=== PATIENT | female | born 1975 | race Caucasian/White ===

== ENCOUNTER 2017-03-30 09:45 | Outpatient (CLI) | payer BC, OTHER ==
[~2017-03-30] VITALS: Ht 165.1 cm; Wt 64.0 kg
[~2017-03-30 09:45] MED LIST: ACHD5005 PO; CALC-783 PO; CETI10TA17 PO; DICY20TA57 PO; FLUT16SP22 NSEACH; LEUC5TAB PO; LVT.1T PO; METHOTREXATE INJ IM; ONDA4TAB8 PO; PNT40TEC PO; PNV71TAB2 PO; PRD10T PO
[2017-03-30 09:54] VITALS: BP 112/80
[2017-03-30] MEDS ORDERED: DICY20TA10 PO (10:22)
[2017-03-30] MEDS ORDERED: MULT-884 PO (10:22)
[2017-03-30] MEDS ORDERED: LEVO100T7 PO (10:22)
[2017-03-30] MEDS ORDERED: FLUT16SP22 NSEACH (10:22)
[2017-03-30] MEDS ORDERED: ONDA4TAB10 PO (10:22)
[2017-03-30] MEDS ORDERED: CETI10TA17 PO (10:22)
[2017-03-30] MEDS ORDERED: CALC-840 PO (10:22)
[2017-03-30] MEDS ORDERED: HYDR-3812 PO (10:22)
[2017-03-30] MEDS ORDERED: PANT40TA3 PO (10:22)
[2017-03-30 10:29] LABS: BASOPHILS % (AUTO) 0 % (0-10); EOSINOPHILS % (AUTO) 1 % (0-10); LYMPHOCYTES % (AUTO) 36 % (12-44); MEAN CORPUSCULAR HEMOGLOBIN 30 PG (25-34); MEAN CORPUSCULAR HGB CONC 32 G/DL (32-36); MEAN CORPUSCULAR VOLUME 93 FL (80-99); MEAN PLATELET VOLUME 9.7 FL (7.4-10.4); MONOCYTES # (AUTO) 0.3 X 10^3 (0.0-1.0); MONOCYTES % (AUTO) 10 % (0-12); NEUTROPHILS # (AUTO) 1.5 X 10^3 (1.8-7.8); NEUTROPHILS % (AUTO) 53 % (42-75); PLATELET COUNT 210 10^3/uL (130-400); RED BLOOD COUNT 4.31 10^6/uL (4.35-5.85); RED CELL DISTRIBUTION WIDTH 13.8 % (10.0-14.5); WHITE BLOOD COUNT 2.9 10^3/uL (4.3-11.0)
[2017-03-30 10:49] LABS: ALANINE AMINOTRANSFERASE 116 U/L (0-55); ALBUMIN 4.2 GM/DL (3.2-4.5); ANION GAP 11 MMOL/L (5-14); ASPARTATE AMINO TRANSFERASE 59 U/L (5-34); BILIRUBIN,TOTAL 1.1 MG/DL (0.1-1.0); BLOOD UREA NITROGEN 15 MG/DL (7-18); BUN/CREATININE RATIO 22; CALCIUM 9.7 MG/DL (8.5-10.1); CARBON DIOXIDE 25 MMOL/L (21-32); CHLORIDE 104 MMOL/L (98-107); CREATININE SERUM 0.67 MG/DL (0.60-1.30); GFR ESTIMATED > 60; GLUCOSE 90 MG/DL (70-105); POTASSIUM 3.6 MMOL/L (3.6-5.0); SODIUM 140 MMOL/L (135-145); TOTAL PROTEIN 7.1 GM/DL (6.4-8.2)
== END 2017-03-30 10:15 | disposition home or self-care (01) ==
LOC: PREOP 09:45
PROVIDERS: ATTEND Obstetrics & Gynecology
DX: Z01.812 Encounter for preprocedural laboratory examination (principal); R10.2 Pelvic and perineal pain; N80.9 Endometriosis, unspecified
CPT/HCPCS: 36415; 80053; 85025; 86850; 86900; 86901; 87081

== ENCOUNTER 2017-04-06 08:20 | Day surgery (SDC) | payer BC, OTHER ==
[~2017-04-06] VITALS: Ht 165.1 cm; Wt 64.0 kg
[~2017-04-06 08:20] MED LIST changes: +CALC-840 PO; +DICY20TA10 PO; +HYDR-3812 PO; +LEVO100T7 PO; +MULT-884 PO; +ONDA4TAB10 PO; +PANT40TA3 PO
[2017-04-06] MEDS ORDERED: BUPIVACAINE 0.25% 30 ML (SENSORCAINE) VIAL ONE (08:43)
[2017-04-06] MEDS ORDERED: ceFAZolin 1 GM/NS 50 ML IVPB IV ONE ×2 (08:45)
[2017-04-06] MEDS ORDERED: CATHETER FLUSH 10 ML SYR IV PRN (08:45)
[2017-04-06] MEDS ORDERED: metroNIDAZOLE 500 MG/100 ML IVPB (PRE-MIX) IV ONE (08:45)
[2017-04-06] MEDS ORDERED: LIDOCAINE 1% INJ 20 ML (XYLOCAINE) VIAL ONE (08:53)
[2017-04-06] MEDS ORDERED: FAMOTIDINE 20MG/2ML IV (PEPCID) ONE (09:02)
--- NOTE | 2017-04-06 09:02 | Progress Note-Pre Operative ---
Pre-Operative Progress Note H&P Reviewed The H&P was reviewed, patient examined and no changes noted. Date Seen by Provider: Apr 06, 2017 Time Seen by Provider: 09:00 Date H&P Reviewed: Apr 06, 2017 Time H&P Reviewed: 09:00 Pre-Operative Diagnosis: CPP, Endometriosis ANGE TINOCO DO Apr 06, 2017 9:02 am
[2017-04-06] MEDS ORDERED: ONDANSETRON 4 MG/2 ML (SDV) Z0FRAN ONE (09:04)
[2017-04-06] MEDS ORDERED: fentaNYL INJECTION 100 MCG/2 ML AMP ONE ×2 (09:04→11:02)
[2017-04-06] MEDS ORDERED: ROCURONIUM 50 MG/5 ML (ZEMURON) VIAL IV ONE (09:04)
[2017-04-06] MEDS ORDERED: LACTATED RINGERS 1,000 ML IV ONE (09:04)
[2017-04-06] MEDS ORDERED: LIDOCAINE PF 2% 5 ML (XYLOCAINE) VIAL ONE (09:04)
[2017-04-06] MEDS ORDERED: proPOfol 200 MG/20 ML (DIPRIVAN) VIAL IV ONE (09:04)
[2017-04-06] MEDS ORDERED: DEXAMETHASONE 10 MG/ML (DECADRON) 1 ML VIAL ONE (09:04)
[2017-04-06] MEDS ORDERED: SEVOFLURANE (ULTANE) 15 ML INHAL SOLN ONE ×4 (09:04→11:30)
[2017-04-06] MEDS ORDERED: MIDAZOLAM 2 MG/2 ML (VERSED) VIAL ONE (09:05)
[2017-04-06] MEDS ORDERED: LACTATED RINGERS 1,000 ML IV PRN (09:18)
[2017-04-06] MEDS ORDERED: FAMOTIDINE 20MG/2ML IV (PEPCID) IV ONE (09:30)
[2017-04-06] MEDS ORDERED: LIDOCAINE 2% 20 ML (XYLOCAINE) VIAL INJ ONE (09:45)
[2017-04-06 09:47] VITALS: BP 114/79
[2017-04-06] MEDS ORDERED: LACTATED RINGERS 1,000 ML IV SCH (10:12)
[2017-04-06] MEDS ORDERED: ONDANSETRON 4 MG/2 ML (SDV) Z0FRAN IV PRN (10:15)
[2017-04-06] MEDS ORDERED: ZOLPIDEM 5 MG (AMBIEN) TAB PO PRN (10:15)
[2017-04-06] MEDS ORDERED: ANTACID SUSP 30 ML UDC (MYLANTA) PO PRN (10:15)
[2017-04-06] MEDS ORDERED: HYDROcodone/APAP 7.5 MG/325 MG (LORTAB, LORCET PLUS) TABLET PO PRN (10:15)
[2017-04-06] MEDS ORDERED: DOCUSATE SODIUM 100 MG (COLACE) CAP PO PRN (10:15)
[2017-04-06] MEDS ORDERED: KETOROLAC 30 MG/ML VIAL IV PRN (10:15)
[2017-04-06] MEDS ORDERED: SIMETHICONE 80 MG (MYLICON) CHEW PO PRN (10:15)
[2017-04-06] MEDS ORDERED: CHLORASEPTIC LOZENGE MM PRN (10:15)
--- NOTE | 2017-04-06 10:16 | Discharge Inst-Women's Service ---
Discharge Inst-Women's Serv Depart Medication/Instructions New, Converted or Re-Newed RX: RX on Chart Consults/Follow Up Additional Follow Up: Yes Orders/Referrals Dr. Diehl in 7-10 days and in 8 weeks Activity Activity: Activity as Tolerated Driving Instructions: No Driving for 1 Week NO SMOKING: NO SMOKING Nothing Inside Vagina: No Douching, No Novelty, No Tampons Diet Discharge Diet: No Restrictions Symptoms to Report to : Bleeding Excessive, Pain Increased, Fever Over 101 Degrees F, Vaginal Bleeding Increase, Questions/Concerns For Any Problems or Questions: Contact Your Physician Skin/Wound Care Infection Signs and Symptoms: Increased Redness, Foul Odor of Wound, Increased Drainage, Skin Itchy or Has a Rash, Increased Swelling, Temperature Above 101 F Operative Area Clean and Dry: Keep Incision Clean/Dry Stitches/Nando/Dermabond: Dermabond, Care of Stitches Bathing Instructions: ANGE Lee DO Apr 06, 2017 10:16
[2017-04-06] MEDS ORDERED: OXYC-471 PO (10:18)
[2017-04-06] MEDS ORDERED: DOCU100C37 PO (10:18)
[2017-04-06] MEDS ORDERED: IBUP-1773 PO (10:18)
[2017-04-06] MEDS ORDERED: SIME80TA16 PO (10:18)
[2017-04-06] MEDS ORDERED: morphine INJ 10 MG/ML 1ML (SYR OR VIAL) ONE (11:13)
[2017-04-06] MEDS ORDERED: ONDANSETRON 4 MG/2 ML (SDV) Z0FRAN IVP PRN (11:30)
[2017-04-06] MEDS ORDERED: morphine INJ 10 MG/ML 1ML (SYR OR VIAL) IVP PRN (11:30)
[2017-04-06] MEDS ORDERED: fentaNYL INJECTION 100 MCG/2 ML AMP IVP PRN (11:30)
[2017-04-06 12:38] VITALS: BP 110/74
[2017-04-06] MEDS: oxyCODONE/APAP 5/325MG (PERCOCET 5) TABLET PO PRN ×2 (15:40→19:46)
[2017-04-06 17:53] VITALS: BP 110/74
[2017-04-06 18:30] VITALS: BP 94/65
[2017-04-06 19:44] VITALS: BP 100/64
--- NOTE | 2017-04-06 19:55 | OPERATIVE REPORT ---
DATE OF SERVICE: 04/06/2017 PREOPERATIVE DIAGNOSIS: 1. A 41-year-old female with chronic pelvic pain. 2. History of endometriosis. POSTOPERATIVE DIAGNOSIS: 1. A 41-year-old female with chronic pelvic pain. 2. History of endometriosis. PROCEDURE PERFORMED: Robotic assisted total laparoscopic hysterectomy with bilateral salpingo-oophorectomy. SURGEON: Dr. Janes Diehl FLAME PLANER: YAMILEX Rey ANESTHESIA: General endotracheal anesthesia. ESTIMATED BLOOD LOSS: Minimal. URINE OUTPUT: 450 mL clear at the end of the procedure. FLUIDS: 1500 mL Lactated Ringers solution. FINDINGS: Atrophic appearing uterus and ovaries consistent with recent history of Lupron use, grossly normal vaginal mucosa, grossly normal external female genitalia, grossly normal appearing uterus and fallopian tubes. SPECIMEN SENT: Uterus, fallopian tubes and ovaries. INDICATIONS FOR PROCEDURE: This 41-year-old female patient who has been seeking my care in the past year for ongoing issues with chronic pelvic pain. She had ongoing diagnosis of endometriosis and has tried many conservative ways of managing this; however, now her pain is debilitating in nature and keeping her from working. She had tried a 3 month trial of Lupron and had noticed some improvement in the past; however, does not want to continue to deal with the symptoms from the Lupron and feels that maybe it is causing issues with her other medications. At this point, she wished to proceed with hysterectomy as it had been previously discussed with the patient. Risks of the procedure were once again reviewed with the patient in detail including risk of bleeding, infection, damage to any surrounding structures including but not limited to bowel, bladder, ureter kidneys, risk for need for blood transfusion, risk of anesthesia and even risk of and reoperation were all discussed with the patient. After all of her questions were answered, consent was obtained in the preoperative area and the patient was taken to the operating room. OPERATIVE REPORT IN DETAIL: Once in the operating room, general anesthesia was found to be adequate. She was placed in the dorsal lithotomy position and prepped and draped in a normal sterile fashion. A time-out was performed and a Nunez catheter was placed using sterile technique. A weighted speculum was inserted into the patient's vagina. A right angle retractor was used to visualize the cervix. It was grasped at the 12 o'clock position using a single tooth tenaculum and an 0 Vicryl suture was placed at the anterior lip of the cervix and the tenaculum was removed. I used the suture then as my retraction point. I then gently sounded the uterine cavity depth of which was found to be 8 cm. I gently dilated the cervix using Sneha dilators to allow placement of the Arely uterine manipulator. I then placed a Arely uterine manipulator with an 8 cm tip and a 3 cm colpotomy ring into the endometrial cavity deploying the balloon and advancing the colpotomy ring around the vaginal fornix. Once this was in place, I performed a change of gloves and took my attention to the abdomen where infraumbilically I infiltrated this area using 0.25% to make an 8 mm incision and directed Veress needle through this incision to retroperitoneal placement was confirmed using saline drop test. I then proceeded with insufflation using CO2 gas until we had a pressure of 5 mmHg was noted. I proceeded to maximum pressure of 15 mmHg at which point I removed the Veress needle and introduced an 8 mm blunt DaVinci camera trocar. Once this was in place, I am able to confirm a intraperitoneal placement using the DaVinci laparoscope. A brief scan of the upper abdominal anatomy appears to be grossly normal. I then had the patient placed in steep Trendelenburg and I am able to visualize all the anatomy necessary to perform the procedure. I then placed 2 lateral trocars, these were both 8 mm and approximately 8 cm lateral to my infraumbilical trocar. Once these are in place, after infiltrating the skin and making an incision and directing them under direct visualization of the laparoscope, I brought in the [employer] robot and docked it in appropriate fashion. Once the robot is docked, I placed the vessel sealer in the left hand and the monopolar anastasiia in the right hand and took my place at the operative console. I performed the following dissection bilaterally: I started at the infundibulopelvic ligament bipolar cauterized and transected using vessel sealer. I grasped the round ligament, bipolar cauterized and transected using the vessel sealer. I then am able to grasp the entire broad ligament, bipolar cauterized this and transected it using the vessel sealer. I do this down to the level of the lower uterine segment at which point I the anterior and posterior leaflets of the broad ligament. The anterior leaflet was taken around to the anterior vaginal fornix and the posterior leaflet was taken around to the posterior vaginal fornix. This allows me to isolate and skeletonize the uterine vessels laterally which are then bipolar cauterized and transected using the vessel sealer. I then performed a colpotomy at the 12 o'clock position and take this circumferentially around the Arely colpotomy ring using the monopolar anastasiia, amputating the cervix away from the vaginal fornix. The uterus, fallopian tubes and ovaries are then removed through the vagina. I then closed the lateral vaginal apices of the vaginal cuff using 2-0 Vicryl in a utqrxz-it-qcyyc fashion, colposuspending them to the uterosacral ligament. I then closed the remainder of the vaginal cuff using 2-0 V-Loc in running fashion after which there was no active bleeding noted from any of my dissection planes. I then undocked the [employer] robot and proceeded with the remainder of the case laparoscopically. I copiously irrigated the wound using normal saline. Once again, no active bleeding is noted from any of my dissection planes. I then placed FloSeal hemostatic agent over all my planes of dissection to ensure postoperative hemostasis. I then had the patient taken out of steep Trendelenburg and removed the lateral trocars under direct visualization of the laparoscope. The infraumbilical trocar was used to release insufflation as well as to introduce 10 mL of 0.25% Marcaine into the peritoneal cavity for postoperative pain management. I then removed this infraumbilical trocar and proceeded with closing the skin incisions using 4-0 Monocryl and an interrupted subcuticular stitch of Dermabond was applied to the incision and band-aids were placed over this. Nunez catheter was left in place. The patient tolerated the procedure well and was taken to the recovery area in stable condition. Lap and sponge counts were correct at the end of the procedure. Instrument counts were correct as well. 1 gm Ancef and 500 mg of Flagyl were given preoperatively for infection prophylaxis. Job ID: [id number] DocumentID: [id number] Dictated Date: 04/06/2017 11:46:40 Quality Assurance Monitor Body Date: 04/06/2017 19:54:53 Dictated By: DO JOSUÉ YANEZ
[2017-04-06] MEDS ORDERED: INFLUENZA TRIvalent 2017-2018 0.5 ML/45 MCG SYR IM ONE (20:45)
[2017-04-07] MEDS ORDERED: IBUPROFEN 600 MG (MOTRIN) TAB PO PRN (03:00)
== END 2017-04-06 19:58 | disposition home or self-care (01) ==
LOC: SDC 08:20 → LDRP 12:35 → SDC 19:58
PROVIDERS: ATTEND Obstetrics & Gynecology
DX: R10.2 Pelvic and perineal pain (principal); N80.0 Endometriosis of uterus; N83.11 Corpus luteum cyst of right ovary; N83.12 Corpus luteum cyst of left ovary; N83.291 Other ovarian cyst, right side; N83.292 Other ovarian cyst, left side; N83.311 Acquired atrophy of right ovary; N83.312 Acquired atrophy of left ovary; N30.10 Interstitial cystitis (chronic) without hematuria; M06.9 Rheumatoid arthritis, unspecified; K21.9 Gastro-esophageal reflux disease without esophagitis; K44.9 Diaphragmatic hernia without obstruction or gangrene; Z79.899 Other long term (current) drug therapy
CPT/HCPCS: 84703; 94664

== ENCOUNTER → 2017-05-31 | Outpatient (CLI) | payer BC ==
[~2017-05-31] MED LIST changes: +DOCU100C37 PO; +IBUP-1773 PO; +OXYC-471 PO; +SIME80TA16 PO
== END ==
LOC: RAD 09:40
PROVIDERS: ATTEND Obstetrics & Gynecology
DX: Z12.31 Encounter for screening mammogram for malignant neoplasm of breast (principal)

== ENCOUNTER → 2018-07-12 | Outpatient (CLI) | payer BC ==
[~2018-07-12] MED LIST changes: -HYDR-3812 PO
[2018-07-12 12:31] LABS: ALANINE AMINOTRANSFERASE 34 U/L (0-55); ALBUMIN 4.5 GM/DL (3.2-4.5); ALKALINE PHOSPHATASE 104 U/L (40-136); BILIRUBIN,TOTAL 0.9 MG/DL (0.1-1.0); BUN/CREATININE RATIO 22; CALCIUM 9.4 MG/DL (8.5-10.1); CARBON DIOXIDE 26 MMOL/L (21-32); CHLORIDE 104 MMOL/L (98-107); CREATININE SERUM 0.63 MG/DL (0.60-1.30); GFR ESTIMATED > 60; GLUCOSE 86 MG/DL (70-105); MAGNESIUM 2.7 MG/DL (1.8-2.4); PHOSPHORUS 4.5 MG/DL (2.3-4.7); POTASSIUM 3.8 MMOL/L (3.6-5.0); SODIUM 140 MMOL/L (135-145); TOTAL PROTEIN 7.1 GM/DL (6.4-8.2)
== END ==
LOC: LAB 11:57
PROVIDERS: ATTEND Internal Medicine Endocrinology, Diabetes & Metabolism
DX: E20.9 Hypoparathyroidism, unspecified (principal); D64.9 Anemia, unspecified; R53.83 Other fatigue
CPT/HCPCS: 36415; 80053; 83735; 84100

== ENCOUNTER → 2018-08-13 | Outpatient (CLI) | payer BC | LOC: RAD 15:23 | PROVIDERS: ATTEND Obstetrics & Gynecology | DX: Z12.31 Encounter for screening mammogram for malignant neoplasm of breast (principal) | CPT/HCPCS: 77067 ==

== ENCOUNTER → 2018-08-13 | Outpatient (CLI) | payer BC | LOC: LAB 15:25 | PROVIDERS: ATTEND Internal Medicine Endocrinology, Diabetes & Metabolism | DX: E20.9 Hypoparathyroidism, unspecified (principal); E03.9 Hypothyroidism, unspecified | CPT/HCPCS: 36415; 82310; 84443 ==

== ENCOUNTER 2018-10-04 05:54 | Outpatient (CLI) | payer BC ==
[~2018-10-04] VITALS: Ht 165.1 cm; Wt 64.0 kg
[2018-10-04] MEDS ORDERED: CALC0.253 PO (15:22)
[2018-10-04] MEDS ORDERED: RT-ALBUINH IH (15:22)
[2018-10-04] MEDS ORDERED: FOLI1TAB24 PO (15:22)
== END 2018-10-04 15:30 | disposition home or self-care (01) ==
LOC: PREOP 05:54
PROVIDERS: ATTEND Surgery
DX: Z01.818 Encounter for other preprocedural examination (principal)

== ENCOUNTER 2018-10-15 07:59 | Day surgery (SDC) | payer BC ==
[~2018-10-15] VITALS: Ht 165.1 cm; Wt 64.0 kg
[~2018-10-15 07:59] MED LIST changes: +CALC0.253 PO; +FOLI1TAB24 PO; +RT-ALBUINH IH
[2018-10-15] MEDS ORDERED: LACTATED RINGERS 1,000 ML IV STA (08:16)
[2018-10-15] MEDS ORDERED: LACTATED RINGERS 1,000 ML IV ONE (08:16)
[2018-10-15] MEDS ORDERED: HURRICAINE EXT TUBE (BENZOCAINE) XX PRN (08:30)
[2018-10-15 08:34] VITALS: BP 98/72
[2018-10-15] MEDS ORDERED: proPOfol 200 MG/20 ML (DIPRIVAN) VIAL IV ONE (08:47)
[2018-10-15] MEDS ORDERED: MIDAZOLAM 2 MG/2 ML (VERSED) VIAL ONE (08:48)
[2018-10-15] MEDS ORDERED: HURRICAINE EXT TUBE (BENZOCAINE) ONE (08:57)
--- NOTE | 2018-10-15 08:58 | Progress Note-Pre Operative ---
Pre-Operative Progress Note H&P Reviewed The H&P was reviewed, patient examined and no changes noted. Time Seen by Provider: 08:55 Date H&P Reviewed: Oct 15, 2018 Time H&P Reviewed: 08:56 Pre-Operative Diagnosis: Gastritis, Dysphagia FELICIA MUSA DO Oct 15, 2018 08:58
[2018-10-15 09:35] VITALS: BP 115/58
--- NOTE | 2018-10-15 09:53 | Progress Note-Post Operative ---
Post-Operative Progess Note Surgeon (s)/Pie Filler (s) Surgeon FELICIA MUSA DO Pie Filler: none Pre-Operative Diagnosis Gastritis, Dysphagia Post-Operative Diagnosis Gastritis Gastric Polyp Procedure & Operative Findings Date of Procedure 10/15/18 Procedure Performed/Findings EGD with bx EGD with Polypectomy, by hot snare Anesthesia Type IV sedation by SMOKE CONTROL SUPERVISOR Estimated Blood Loss Estimated blood loss (mL): scant Specimens/Packing Specimens Removed antral bx Gastric polyps FELICIA MUSA DO Oct 15, 2018 09:53
--- NOTE | 2018-10-15 09:55 | Endoscopy Discharge Instruct ---
Endo Procedure/Findings Findings 1.: Gastritis 2.: Polyp Discharge Instructions - Activity: You might feel a little sleepy until tomorrow. This is due to the medicine you received to relax you. Until tomorrow, you should: NOT drive a car, operate machinery or power tools. NOT drink any alcoholic beverages. NOT make any important decisions or sign importortant papers. Do not return to work until tomorrow, unless otherwise instructed. Resume previous activities tomorrow. Diet: Start by taking liquids. If you tolerate liquids, advance to solid food. make an appointment for one week Notify Physician - If you experience excessive bleeding, unusual abdominal pain, fever, or chest pain, contact your doctor immediately. Follow-Up: - I have received and understand the above instructions and will call my doctor if I have any further questions. Patient Signature Date Nurse Signature Other (Relationship) FELICIA MUSA DO Oct 15, 2018 09:55
[2018-10-15 10:00] VITALS: BP 103/71
--- NOTE | 2018-10-15 12:56 | Anesthesia-General Post-Op ---
MAC Patient Condition Mental Status/LOC: Same as Preop Cardiovascular: Satisfactory Nausea/Vomiting: Absent Respiratory: Satisfactory Pain: Controlled Complications: Absent Post Op Complications Complications None Follow Up Care/Instructions Patient Instructions None needed. Anesthesiology Discharge Order Discharge Order Patient was seen this morning after the procedure and she was doing well, no complaints, stable vital signs, no apparent adverse anesthesia problems. ALLISON ARROYO DO Oct 15, 2018 12:56
--- NOTE | 2018-10-15 15:48 | OPERATIVE REPORT ---
DATE OF SERVICE: PREOPERATIVE DIAGNOSIS: Dysphagia. POSTOPERATIVE DIAGNOSES: 1. Gastritis. 2. Gastric polyps, questionable very small hiatal hernia. PROCEDURE: 1. EGD with biopsy. 2. EGD with polypectomy by snare. SURGEON: Alfonso Wei DO. BOOTMAKER HAND: None. ANESTHESIA: IV sedation by GOLF CLUB MAKER. SPECIMEN: One biopsy from the antrum and then multiple gastric polyps. BLOOD LOSS: Scant. FLUIDS: Per anesthesia. POSTOPERATIVE CONDITION: Stable. INDICATION FOR PROCEDURE: The patient is a 43-year-old female who has been having some reflux and dysphagia, needed a workup. FINDINGS: The patient had some gastritis, may be a very small hiatal hernia and she had multiple polyps, some are rather large. No signs of stricture in the esophagus. PROCEDURE NOTE: After informed consent was obtained, the patient was brought to the endoscopy suite, placed in in the bed in left lateral decubitus position. She was administered IV sedation by the GOLF CLUB MAKER who monitored her vitals the entire time, heart rate, blood pressure and pulse ox and the scope was inserted down the mouth through the esophagus into the stomach, pushed towards the antrum, looked like there was mild gastritis, took a picture of this and then pushed in the duodenum. Duodenum looked fine. Pulled back into the antrum, did a biopsy of the antrum, then pulled back, retroflexed, saw possibly a very small hiatal hernia and then saw multiple large polyps, elected to do snare polypectomy to remove these. I removed 3 polyps to be sent to pathology and pulled the scope back up into the GE junction, took a picture, GE junction actually looked okay and then took a few pictures on the way out of the esophagus. Esophagus looks fine. No signs of any stricture. The scope was removed. The patient tolerated the procedure. She was recovered in the endoscopy suite. Job ID: [id number] DocumentID: [id number] Dictated Date: 10/15/2018 11:23:13 Labor Relations Manager Date: 10/15/2018 15:47:44 Dictated By: ALFONSO WEI DO
== END 2018-10-15 10:15 | disposition home or self-care (01) ==
LOC: ENDO 07:59
PROVIDERS: ATTEND Surgery
DX: K29.70 Gastritis, unspecified, without bleeding (principal); K31.7 Polyp of stomach and duodenum; J45.909 Unspecified asthma, uncomplicated; M06.9 Rheumatoid arthritis, unspecified; Z79.899 Other long term (current) drug therapy

== ENCOUNTER → 2019-05-22 | Outpatient (CLI) | payer BC | LOC: LAB 14:47 | PROVIDERS: ATTEND Internal Medicine Endocrinology, Diabetes & Metabolism | DX: M79.18 Myalgia, other site (principal) | CPT/HCPCS: 36415; 86003; 86618; 86666; 86668; 86757 ==

== ENCOUNTER → 2019-11-20 | Outpatient (CLI) | payer BC ==
[~2019-11-20] MED LIST changes: +ONDA-105 PO; -ONDA4TAB10 PO
[2019-11-20 15:06] LABS: CHLORIDE 102 MMOL/L (98-107); POTASSIUM 3.8 MMOL/L (3.6-5.0); SODIUM 139 MMOL/L (135-145)
[2019-11-20 15:08] LABS: CALCIUM 9.2 MG/DL (8.5-10.1); GLUCOSE 91 MG/DL (70-105)
[2019-11-20 15:09] LABS: CARBON DIOXIDE 28 MMOL/L (21-32)
[2019-11-20 15:12] LABS: CREATININE SERUM 0.62 MG/DL (0.60-1.30); GFR ESTIMATED > 60
[2019-11-20 15:13] LABS: BUN/CREATININE RATIO 26
== END ==
LOC: LAB 14:40
PROVIDERS: ATTEND Internal Medicine Endocrinology, Diabetes & Metabolism
DX: E20.9 Hypoparathyroidism, unspecified (principal)
CPT/HCPCS: 36415; 80048

== ENCOUNTER → 2019-11-20 | Outpatient (CLI) | payer BC ==
--- NOTE | 2019-11-21 10:54 | Diagnostic Imaging Report ---
Indication: Routine screening. Comparison is made with prior mammogram from 08/13/2018 and 06/14/2017. 2-D and 3-D bilateral screening mammography was performed with CAD. Both breasts are heterogeneously dense, limiting the sensitivity of mammography. There is a circumscribed density in the right breast mid depth slightly medial at approximately the 3:00 location. This may represent a cyst. No other masses are seen. No suspicious microcalcifications are seen. Axillae are unremarkable. IMPRESSION: BI-RADS 0 Circumscribed density in the medial right breast mid depth, likely a cyst. Further evaluation with ultrasound is recommended. Dictated by: Dictated on workstation # [id number]
== END ==
LOC: RAD 14:21
PROVIDERS: ATTEND Obstetrics & Gynecology
DX: Z12.31 Encounter for screening mammogram for malignant neoplasm of breast (principal); N63.15 Unspecified lump in the right breast, overlapping quadrants
CPT/HCPCS: 77063; 77067

== ENCOUNTER → 2019-12-04 | Outpatient (CLI) | payer BC ==
--- NOTE | 2019-12-04 20:43 | Diagnostic Imaging Report ---
INDICATION: Abnormal screening mammogram. The study is performed for further evaluation. COMPARISON: Correlation is made with recent screening study from 11/20/2019. EXAMINATION: Sonographic interrogation of the medial right breast does show simple appearing cyst at the 3:00 location, anterior depth, measuring 9 mm x 8 mm x 9 mm. No internal vascularity is seen. This correlates in size and location to the mammographic density. IMPRESSION: Simple cyst at the 3:00 location of right breast, corresponding to the mammographic density. The patient may return to routine annual screening mammography. ACR BI-RADS Category 2: Benign findings. Result letter will be mailed to the patient. Note: At least 10% of breast cancer is not imaged by mammography. Dictated on workstation # [id number]
== END ==
LOC: RAD 13:48
PROVIDERS: ATTEND Obstetrics & Gynecology
DX: N60.01 Solitary cyst of right breast (principal)

== ENCOUNTER → 2020-12-29 | Outpatient (CLI) | payer BC ==
[~2020-12-29] MED LIST changes: -FOLI1TAB24 PO; +FOLI1TAB33 PO; -OXYC-471 PO; +OXYC1TAB11 PO; -PANT40TA3 PO; +PANT40TA52 PO
--- NOTE | 2020-12-29 16:24 | Diagnostic Imaging Report ---
INDICATION: Routine screening. COMPARISON is made with prior mammograms from 11/20/2019 and 08/13/2018. 2-D and 3-D bilateral screening mammography was performed with CAD. Both breasts are heterogeneously dense, limiting the sensitivity of mammography. Circumscribed density in the right breast appears stable and has been shown to represent a cyst. No spiculated mass or malignant appearing microcalcifications are seen. There are benign calcifications. Axillae are unremarkable. IMPRESSION: BI-RADS Category 2 No mammographic features suspicious for malignancy are identified. ACR BI-RADS Category 2: Benign findings. Result letter will be mailed to the patient. Note: At least 10% of breast cancer is not imaged by mammography. Dictated by: Dictated on workstation # [id number]
== END ==
LOC: RAD 14:32
PROVIDERS: ATTEND Obstetrics & Gynecology
DX: Z12.31 Encounter for screening mammogram for malignant neoplasm of breast (principal)
CPT/HCPCS: 77063; 77067

== ENCOUNTER → 2021-04-15 | Outpatient (CLI) | payer BC ==
--- NOTE | 2021-04-15 13:09 | Diagnostic Imaging Report ---
Indication: Left knee pain. No known injury 3 views of the left knee shows no fracture, dislocation or other abnormality. IMPRESSION: Normal left knee. Dictated by: Dictated on workstation # [id number]
== END ==
LOC: RAD FS 09:50
PROVIDERS: ATTEND Nurse Practitioner Family
DX: M25.562 Pain in left knee (principal)
CPT/HCPCS: 73562

== ENCOUNTER → 2022-02-21 | Outpatient (CLI) | payer BC ==
[~2022-02-21] MED LIST changes: +DICY20TA PO; -DICY20TA10 PO
--- NOTE | 2022-02-22 12:47 | Diagnostic Imaging Report ---
INDICATION: Routine screening. COMPARISON: 12/29/2020 and 11/20/2019. TECHNIQUE: 2D and 3D bilateral screening mammography was performed with CAD. FINDINGS: Scattered fibroglandular densities are identified bilaterally. A benign-appearing nodule in the medial right breast appears stable. A benign nodule in the outer left breast is stable. No spiculated mass or malignant-appearing microcalcifications are seen. There are benign calcifications. The axillae are unremarkable. IMPRESSION: No mammographic features suspicious for malignancy are identified. ACR BI-RADS Category 2: Benign findings. Result letter will be mailed to the patient. Note: At least 10% of breast cancer is not imaged by mammography. Dictated by: Dictated on workstation # [id number]
== END ==
LOC: RAD 13:57
PROVIDERS: ATTEND Obstetrics & Gynecology
DX: Z12.31 Encounter for screening mammogram for malignant neoplasm of breast (principal)
CPT/HCPCS: 77063; 77067

== ENCOUNTER → 2023-02-20 | Outpatient (CLI) | payer BC ==
[~2023-02-20] MED LIST changes: +ALBU8.5H6 IH; -RT-ALBUINH IH
--- NOTE | 2023-02-20 20:12 | Diagnostic Imaging Report ---
INDICATION: Routine screening. COMPARISON is made with prior mammograms 02/21/2022 and 12/29/2020. 2-D and 3-D bilateral screening mammography was performed with CAD. Scattered fibroglandular densities are identified bilaterally. There are waxing and waning circumscribed nodules in the right breast consistent with cysts. No spiculated mass or malignant-appearing microcalcifications are seen. There are benign calcifications. Axillae are unremarkable. IMPRESSION: BI-RADS Category 2 No mammographic features suspicious for malignancy are identified. ACR BI-RADS Category 2: Benign findings. Result letter will be mailed to the patient. Note: At least 10% of breast cancer is not imaged by mammography. Dictated by: Dictated on workstation # [id number]
== END ==
LOC: RAD 14:14
PROVIDERS: ATTEND Obstetrics & Gynecology
DX: Z12.31 Encounter for screening mammogram for malignant neoplasm of breast (principal)
CPT/HCPCS: 77063; 77067